=== PATIENT | male | born 1995 | race Caucasian/White ===

== ENCOUNTER 2020-03-16 18:20 | Emergency (ER) | payer BC, SELFPAY ==
[2020-03-16 18:22] VITALS: BP 123/87; PULSE 79; RESP 18; TEMP 36.8; O2SAT 99; BMI 30.2
--- NOTE | 2020-03-16 18:37 | ECG_ITS ---
[facility] Test Date: 2020-03-16 Pat Name: Harris Buenrostro Department: Room: Gender: Male Fitness Director: : 1995 Requested By: Brook Salcedo Order Number: [id number] MD: Whitley Olivares M.D. Measurements Intervals [place] Rate: 86 P: 19 WA: 169 QRS: 80 QRSD: 101 T: 9 QT: 340 QTc: 408 Interpretive Statements SINUS RHYTHM No previous ECG available for comparison Electronically Signed On 03-17-2020 18:20:14 CDT by Whitley Olivares M.D. [email or web address]
--- NOTE | 2020-03-16 18:37 | XRR_ITS ---
PROCEDURE INFORMATION: Exam: XR Chest, 1 View Exam date and time: 03/16/2020 6:38 PM Age: 25 years old Clinical indication: On breathing; Patient HX: C/O chest pain w exertion; Additional info: Syncope TECHNIQUE: Imaging protocol: XR of the chest Views: 1 view. COMPARISON: No relevant prior studies available. FINDINGS: Lungs: Unremarkable. No consolidation. Pleural space: Unremarkable. No pleural effusion. No pneumothorax. Heart/Mediastinum: Unremarkable. No cardiomegaly. Bones/joints: No acute abnormality. XR/XR chest 1V portable [id number] IMPRESSION: No acute findings.
[2020-03-16 19:12] LABS: Basophils % 0.3 %; Eosinophils # 0.2 10^3/uL (0.0-0.8); Eosinophils % 1.6 %; Hematocrit 46.5 % (42.0-52.0); Hemoglobin 15.4 g/dL (11.7-16.6); Lymphocytes # 2.5 10^3/uL (0.8-4.8); Mean Corpuscular HGB Conc 33.1 g/dL (30.0-36.0); Mean Corpuscular Hemoglobin 28.1 pg (28.0-34.0); Mean Corpuscular Volume 84.7 fL (80-94); Mean Platelet Volume 10.1 fL (7.4-10.4); Monocytes # 0.6 10^3/uL (0.2-0.9); Neutrophils # 7.06 10^3/uL (1.8-7.7); Neutrophils % 67.9 %; Nucleated Red Blood Cells % 0 %; Platelet Count 268 10^3/cmm (130-400); Red Blood Count 5.49 10^6/uL (4.1-5.3); Red Cell Distribution Width 11.8 % (12.1-15.1); White Blood Count 10.4 10^3/uL (4.0-10.0)
[2020-03-16] MEDS: ondansetron 2 mg/ML SDV 2 mL 4 MG IVP (19:23)
[2020-03-16 19:34] LABS: D Dimer 0.28 ug/mIFEU (0-0.59)
--- NOTE | 2020-03-16 19:35 | ED_ITS ---
HPI - Syncope General: Chief Complaint: Syncope Stated Complaint: SYNCOPE Time Seen by Provider: 03/16/20 18:37 Source: patient Mode of arrival: ambulatory Limitations: no limitations History of Present Illness: HPI narrative: Harris is a nice 25-year-old male who comes in complaining of a syncopal spell. 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 Patient states that he felt overheated and when he was trying to get out of his gear felt like his vision changed and saw colors and then the next thing he remembers is multiple people standing over him to see if he was okay. The patient denied any preceding chest pain, headache, abdominal pain or back pain. Patient states he feels somewhat better now as he is cool down. He said he had one similar episode in the past where he was exhausted from heat and he had a syncopal spell then. Patient denies any history of passing out otherwise. Associated symptoms: Deny abdominal pain, chest pain, fever(s), headache(s), lightheadedness, nausea or vertigo Review of Systems Const: Denies: fever(s), chills, body aches, fatigue, malaise or diaphoresis Eyes: Denies: change in vision, blurry vision, photophobia, eye discomfort, eye discharge, eye redness or yellow eyes ENMT: Denies: throat pain, odynophagia, hoarseness, swelling of lips/tongue, ear or mastoid pain, ear discharge, change in hearing or nasal discharge Card: Reports: syncope; Denies: chest pain, palpitations, irregular heart rhythm, edema, lightheadedness, pre-syncope, dyspnea on exertion or orthopnea Resp: Denies: dyspnea, productive cough, non-productive cough, wheezing, hemoptysis or chest congestion GI: Denies: abdominal pain, nausea, vomiting, hematemesis, coffee ground emesis, heartburn, diarrhea, constipation, GI cramping, hematochezia or melena : Denies: flank pain, dysuria, urinary frequency, urinary urgency or hematuria Musc: Denies: neck pain, back pain, extremity pain, extremity swelling, joint pain, joint swelling, joint redness, joint warmth or joint stiffness Skin/Breast: Denies: rash, pruritus, erythema, skin pain or skin tenderness Neuro: Denies: headache(s), numbness in extremities, weakness in extremities, sensory changes, lack of coordination, difficulty walking, dizziness, vertigo, confusion, Slurred speech present or seizure-like activity Casey/Lymph: Denies: easy bruising, easy bleeding, petechiae, purpura or enlarged lymph nodes All/Imm: Denies: urticaria, throat swelling, tongue swelling, facial swelling or acute wheezing PFSH ED PFSH: Medical History No pertinent past medical history Surgical History No pertinent past surgical history Physical Exam Const: COMMON NORMALS: no acute distress, patient oriented x3, no limitations and alert GENERAL APPEARANCE: cooperative HENMT: COMMON NORMALS: normocephalic, atraumatic, external ears normal, EAC's normal and Normal external nose present HEAD & SCALP: normal to inspection, normocephalic and atraumatic FACE & SINUS: normal facial exam and face symmetric NOSE: Normal external nose present and Normal nares present EXTERNAL EAR: Yes external ears normal EXTERNAL AUDITORY CANAL: EAC's normal MOUTH: Normal oral and palatal mucosa present, lip normal and tongue normal Eye: COMMON NORMALS: Equal, round and reactive pupils present and conjunctivae normal GENERAL EYE: appearance normal, both eyes and all related structures ALIGNMENT: Yes alignment normal PERIORBITAL: periorbital findings normal EYELID: eyelids normal CONJUNCTIVA: Yes conjunctivae normal SCLERA: sclerae normal PUPIL: Yes Equal, round and reactive pupils present Neck/C-Spine: COMMON NORMALS: full ROM, no lymphadenopathy, supple, no meningeal signs and no JVD GENERAL: Yes normal visual inspection and Yes trachea midline Chest: COMMONS NORMALS: normal inspection of the chest and normal palpation of entire chest wall Resp: COMMON NORMALS: normal respiratory effort, No retractions, No use of accessory muscles and clear to auscultation bilaterally EFFORT & INSPECTION: Yes able to speak in complete sentences and Yes symmetric chest movement AUSCULTATION: clear to auscultation bilaterally, no crackles, no rales, no rhonchi and no wheezes Cardio: COMMON NORMALS: no JVD, regular rate, regular rhythm, S1 normal heart sound present and S2 normal heart sound present RATE: regular rate RHYTHM: regular rhythm HEART SOUNDS: S1 normal heart sound present, S2 normal heart sound present, no click, no gallops, no murmurs and no rubs GI: COMMON NORMALS: Soft to palpation and No hepatosplenomegaly present PALPATION: Yes Soft to palpation, No Tenderness to palpation present (GI), No Guarding due to palpation present (GI), No Rigid due to palpation, Yes No hepatosplenomegaly present, No Hernia present, No Palpable mass present and No Pulsatile mass present : COMMON NORMALS: Yes no CVA tenderness BLADDER/KIDNEY EXAM: Yes no CVA tenderness Back/Pelvis: COMMON NORMALS: no CVA tenderness, thoracic and lumbar spine normal to inspection, no thoracic nor lumbar tenderness and thoraco-lumbar ROM normal Extremity: COMMON NORMALS: normal to inspection, full ROM, capillary refill normal, no joint enlargement, no clubbing, cyanosis or edema and no calf tenderness Neuro: COMMON NORMALS: patient oriented x3, CN's II-XII intact bilaterally, moves all extremities, no focal motor deficits and no sensory deficits noted SENSORIUM/ORIENTATION: Yes alert MENINGEAL SIGNS: Yes no meningeal signs SPEECH: speech normal Psych: COMMON NORMALS: mental status grossly normal, Normal thought process present, cooperative, normal affect, speech normal and activity/motor behavior normal SPEECH: Yes normal speech THOUGHT PROCESS: Normal thought process present Skin: COMMON NORMALS: no rashes or lesions noted, turgor normal, no jaundice, no petechiae and no mottling GENERAL SKIN EXAM: no rashes or lesions noted and turgor normal Course Vital Signs: Vital signs: Vital Signs Temperature 98.3 F 03/16/20 18:22 Pulse Rate 77 03/16/20 21:24 Respiratory Rate 18 03/16/20 21:24 Blood Pressure 118/68 03/16/20 21:24 Pulse Oximetry 99 03/16/20 21:24 MDM - Syncope MDM Narrative: Medical decision making narrative: The patient is feeling better here after IV fluids and cooling off. He is ready to go home. Agrees to stay to let us finish his IV fluids. 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 He does not think he has had is much p.o. intake as he should or as much urination as he should. He had no chest pain or shortness of breath. His EKG is normal I see no sign of Sykge-Jztkwpjru-Drkcf syndrome, obstructed AV pathway, Brugada syndrome, bifascicular block, Jkgm-Knprzf-Zemtkd sign, epsilon wave or long or short QT syndrome. Believe the patient will be safe for discharge and he understands he will need to rest for the next couple days. He agrees to return should his symptoms change or worsen in any way. Lab Data: Attestation: I reviewed the patient's lab results. Labs: Lab Results 03/16/20 03/16/20 03/16/20 Range/Units 18:57 18:57 18:57 WBC 10.4 H (4.0-10.0) 10^3/ uL RBC 5.49 H (4.1-5.3) 10^6/u L Hgb 15.4 (11.7-16.6) g/dL Hct 46.5 (42.0-52.0) % MCV 84.7 (80-94) fL MCH 28.1 (28.0-34.0) pg MCHC 33.1 (30.0-36.0) g/dL RDW 11.8 L (12.1-15.1) % Plt Count 268 (130-400) 10^3/c mm MPV 10.1 (7.4-10.4) fL Neut % (Auto) 67.9 % Lymph % (Auto) 24.0 % [place] % (Auto) 6.0 % Eos % (Auto) 1.6 % Baso % (Auto) 0.3 % Neut # (Auto) 7.06 (1.8-7.7) 10^3/u L Lymph # (Auto) 2.5 (0.8-4.8) 10^3/u L [place] # (Auto) 0.6 (0.2-0.9) 10^3/u L Eos # (Auto) 0.2 (0.0-0.8) 10^3/u L Baso # (Auto) 0.0 (0.0-0.1) 10^3/u L Nucleated RBC % (a uto) 0 % Nucleated RBCs # 0.0 /100WBC D-Dimer (0-0.59) ug/mIFE U Sodium 139 (136-145) mmol/L Potassium 3.6 (3.5-5.1) mmol/L Chloride 102 (98-107) mmol/L Carbon Dioxide 26 (22-29) mmol/L Anion Gap 14.6 (5-19) BUN 11 (6-20) mg/dL Creatinine 0.8 (0.7-1.2) mg/dL GFR Calculation 118.8 (90-130) mL/min Glucose 107 (65-115) mg/dL Calculated Osmolal ity 288 (285-295) mOsm/k g Calcium 9.7 (8.5-10.5) mg/dL Total Bilirubin 0.4 (0.15-1.2) mg/dL AST 25 (0-40) U/L ALT 37 (0-41) U/L Alkaline Phosphata se 99 (40-130) IU/L Troponin T Baselin e 11 (0-15) ng/L Total Protein 7.1 (6.6-8.7) g/dL Albumin 4.8 (3.5-5.2) g/dL Globulin 2.3 (1.3-4.6) g/dL 03/16/20 Range/Units 18:57 WBC (4.0-10.0) 10^3/ uL RBC (4.1-5.3) 10^6/u L Hgb (11.7-16.6) g/dL Hct (42.0-52.0) % MCV (80-94) fL MCH (28.0-34.0) pg MCHC (30.0-36.0) g/dL RDW (12.1-15.1) % Plt Count (130-400) 10^3/c mm MPV (7.4-10.4) fL Neut % (Auto) % Lymph % (Auto) % [place] % (Auto) % Eos % (Auto) % Baso % (Auto) % Neut # (Auto) (1.8-7.7) 10^3/u L Lymph # (Auto) (0.8-4.8) 10^3/u L [place] # (Auto) (0.2-0.9) 10^3/u L Eos # (Auto) (0.0-0.8) 10^3/u L Baso # (Auto) (0.0-0.1) 10^3/u L Nucleated RBC % (a uto) % Nucleated RBCs # /100WBC D-Dimer 0.28 (0-0.59) ug/mIFE U Sodium (136-145) mmol/L Potassium (3.5-5.1) mmol/L Chloride (98-107) mmol/L Carbon Dioxide (22-29) mmol/L Anion Gap (5-19) BUN (6-20) mg/dL Creatinine (0.7-1.2) mg/dL GFR Calculation (90-130) mL/min Glucose (65-115) mg/dL Calculated Osmolal ity (285-295) mOsm/k g Calcium (8.5-10.5) mg/dL Total Bilirubin (0.15-1.2) mg/dL AST (0-40) U/L ALT (0-41) U/L Alkaline Phosphata se (40-130) IU/L Troponin T Baselin e (0-15) ng/L Total Protein (6.6-8.7) g/dL Albumin (3.5-5.2) g/dL Globulin (1.3-4.6) g/dL Imaging Data^: CXR: Attestation: I personally reviewed and interpreted this imaging study as follows: My impression: No acute cardiopulmonary findings. EKG Data^: EKG 1: Attestation: I personally reviewed and interpreted this EKG as follows: EKG interpretation date: 03/16/20 EKG interpretation time: 18:20 Interpretation: Normal sinus rhythm 86 beats a minute, normal axis, no blocks, normal intervals, no acute ST-T wave changes. Discharge Plan Discharge Patient Disposition: Home Clinical Impression: Vasovagal syncope Heat exhaustion Qualifiers: Encounter type: initial encounter Qualified Code(s): T67.5XXA - Heat exhaustion, unspecified, initial encounter Condition: Stable Discharge Orders: Discharge Order (Routine); Ordered 03/16/20 Ordered By: Annalisa Navarro Referrals: Melita Guerra DO [Physician] - Discharge Diet: Advance as tolerated Discharge Activity: Increase activity as tolerated Patient Instructions: Heat Exhaustion (ED), Syncope (ED) Activity Restrictions/Additional Instructions: Please return to the ER immediately for any of the signs or symptoms listed on your discharge instruction sheets, worsening/changing of your symptoms, you are not getting better as quickly as expected, or for ANY other cause or concerns. Rest and keep yourself hydrated over the next 2 days. After 2 more days she may begin to resume normal activity if you feel well. If for any reason you do not return to the ER or follow-up with your regular doctor for recheck. 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
[2020-03-16 19:36] LABS: Alanine Aminotransferase 37 U/L (0-41); Albumin Level 4.8 g/dL (3.5-5.2); Alkaline Phosphatase 99 IU/L (40-130); Anion Gap 14.6 (5-19); Aspartate Amino Transferase 25 U/L (0-40); Blood Urea Nitrogen 11 mg/dL (6-20); Calcium 9.7 mg/dL (8.5-10.5); Carbon Dioxide 26 mmol/L (22-29); Chloride 102 mmol/L (98-107); Globulin 2.3 g/dL (1.3-4.6); Glomerular Filtration Rate 118.8 mL/min (90-130); Glucose 107 mg/dL (65-115); Osmolality Calculated 288 mOsm/kg (285-295); Potassium 3.6 mmol/L (3.5-5.1); Sodium 139 mmol/L (136-145); Total Bilirubin 0.4 mg/dL (0.15-1.2); Total Protein 7.1 g/dL (6.6-8.7)
[2020-03-16 19:37] LABS: Troponin(5th) Baseline 11 ng/L (0-15)
[2020-03-16] MEDS: sodium chloride 0.9% 1,000 ML 999 ML IV (20:24)
[2020-03-16 20:59] VITALS: BP 108/70; PULSE 85; RESP 18; O2SAT 99
[2020-03-16 21:00] VITALS: PULSE 76; RESP 16; O2SAT 100
[2020-03-16 21:24] VITALS: BP 118/68; PULSE 77; RESP 18; O2SAT 99
== END 2020-03-16 21:24 | disposition home or self-care (01) ==
PROVIDERS: Emergency Medicine; Emergency Provider Emergency Medicine
DX: R55 Syncope and collapse (principal); T67.5XXA Heat exhaustion, unspecified, initial encounter; X30.XXXA Exposure to excessive natural heat, initial encounter
CPT/HCPCS: 12345; 36415; 71045; 80053; 84484; 85025; 85378; 93005; 96361; 96374; 96375; 99283; 99284; J2405; J7030